=== PATIENT | female | born 1995 | race African-American/Black ===

== ENCOUNTER 2016-11-11 20:20 | Emergency (ER) | payer SELFPAY ==
[~2016-11-11] VITALS: Ht 167.6 cm; Wt 72.6 kg
[2016-11-11 20:38] VITALS: BP 191/101
[2016-11-11 20:53] LABS: BILIRUBIN,URINE NEGATIVE (NEG); GLUCOSE,URINE NEGATIVE (NEG); NITRITE,URINE NEGATIVE (NEG); PH,URINE 7.5; PROTEIN,URINE NEGATIVE (NEG-TRACE); UROBILINOGEN,URINE 0.2 mg/dL (0.2 mg/dL)
[2016-11-11 20:59] LABS: BACTERIA,URINE MODERATE /HPF (0-FEW); BARBITURATES NEG (NEG); BENZODIAZEPINES NEG (NEG); CANNABINOIDS POS (NEG); COCAINE POS (NEG); METHADONE NEG (NEG); OPIATES NEG (NEG); PHENCYCLIDINE NEG (NEG); RBC,URINE RARE /HPF (0-2); SQUAMOUS EPITHELIAL CELL,UR FEW /LPF; WBC,URINE RARE /HPF (0-4)
[2016-11-11 21:06] LABS: ETHANOL, URINE NEG (NEG)
[2016-11-11] MEDS ORDERED: IBUPROFEN 800 MG TABLET. PO ONE (21:15)
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
== END 2016-11-11 22:19 | disposition home or self-care (01) ==
LOC: ER 20:20
DX: T76.21XA Adult sexual abuse, suspected, initial encounter (principal); N89.8 Other specified noninflammatory disorders of vagina; F12.10 Cannabis abuse, uncomplicated
CPT/HCPCS: 80305; 80320; 81001; 84703; 87086; 99284; Q0111; 81025; 87491; 87591; G0481